=== PATIENT | male | born 1945 | race Caucasian/White ===

== ENCOUNTER 2021-05-16 00:16 | Emergency (ER) | payer MEDICARE, SELFPAY ==
[~2021-05-16] VITALS: Ht 188 cm; Wt 122.5 kg
--- NOTE | 2021-05-16 00:34 | NUR ---
Placed in room 2 . Placed on hall monitor, blood pressure machine and pulse oximeter. To gown for exam. Side rails up. Report given to TOOTIE HAYES.
[2021-05-16 00:35] VITALS: BP_SYST 162
--- NOTE | 2021-05-16 00:35 | NUR ---
Pt reported episode of non radiation pressure to L side of chest yesterday afternoon. States it lasted about 15 minutes before spontaneously resolving. Experienced another episode of non radiating chest pain earlier tonight while getting ready for bed. Denies any dizziness/lightheadedness, shortness of breath, nausea/vomiting or any other symptoms/discomforts.
[2021-05-16] MEDS ORDERED: ASPIRIN 81 MG TAB.CHEW PO ONE (00:45)
--- NOTE | 2021-05-16 00:45 | NUR ---
BETI SWAB COLLECTED AND SENT TO LAB.
--- NOTE | 2021-05-16 01:20 | NUR ---
CIERRA [place] at bedside examining patient.
[2021-05-16] MEDS ORDERED: NITROGLYCERIN 0.4 MG TAB.SUBL SL ONE ×3 (01:45→04:00)
[2021-05-16] MEDS ORDERED: MAGNESIUM SULFATE 50 ML IV ONE (01:45)
[2021-05-16 02:17] LABS: ALANINE AMINOTRANSFERASE 38 U/L (12-78); ALBUMIN 3.4 g/dL (3.4-4.8); ANION GAP 12 (5-15); ASPARTATE AMINOTRANSFERASE 14 U/L (10-37); CALCIUM 8.9 mg/dL (8.4-11.0); CHLORIDE 100 mmol/L (98-107); CREATININE 1.32 mg/dL (0.55-1.30); GLUCOSE 325 mg/dL (70-99); POTASSIUM 4.6 mmol/L (3.5-5.1); SODIUM SERUM 136 mmol/L (136-145); UREA NITROGEN, BLOOD 29 mg/dL (8-21)
[2021-05-16 02:28] LABS: BASOPHILS % (AUTO) 0.3 % (0.0-2.0); EOSINOPHILS # (AUTO) 0.2 K/uL (0.0-0.4); EOSINOPHILS % (AUTO) 2.5 % (0.0-4.0); HEMATOCRIT 40.6 % (36-54); HEMOGLOBIN 13.4 g/dL (14.0-18.0); LYMPHOCYTES # (AUTO) 3.1 K/uL (1.0-5.5); MEAN CORPUSCULAR HEMOGLOBIN 31 pg (27-31); MEAN CORPUSCULAR HGB CONC 33 % (32-36); MEAN CORPUSCULAR VOLUME 94 fL (79.0-98.0); MONOCYTES % (AUTO) 11.9 % (1.7-9.3); NEUTROPHILS % (AUTO) 48.3 % (40.0-70.0); PLATELET COUNT (AUTO) 162 K/uL (130-430); RED BLOOD CELL COUNT(AUTO) 4.31 MIL/uL (4.2-6.2); RED CELL DISTRIBUTION WIDTH 13.4 % (9.0-15.0); WHITE BLOOD COUNT (AUTO) 8.3 K/uL (4.8-10.8)
[2021-05-16 02:30] LABS: TOTAL BILIRUBIN 0.2 mg/dL (0.0-1.0)
--- NOTE | 2021-05-16 04:00 | NUR ---
Pt reported "minor" aggravation to Left side of chest. 1st dose of Nitroglycerin given Sublingualy. 0400: BP: 165/53 72 HR. 0405: BP 144/63 66 HR. Pt reports relief from 1st dose of Nitro. States "I dont have any discomfort at this time." Does not feel the need for another dose of Nitro at this time. Resting comfortably in bed.
--- NOTE | 2021-05-16 05:02 | NUR ---
Called [facility]; Gave report to FREDDY Salazar in ER. Pt made aware of transfer.
--- NOTE | 2021-05-16 06:52 | NUR ---
Patient does not wish to proceed with medical care recommended by ER MD Ortiz . Patient given information related to possible complications, up to and including , which could occur as a result of leaving hospital at this time. Patient verbalizes understanding of risks involved leaving against medical advice. Patient has signed AMA form.
[2021-05-16 06:55] VITALS: BP_SYST 139
== END 2021-05-16 06:54 | disposition left against medical advice (07) ==
LOC: SED 00:16
DX: R07.89 Other chest pain (principal); Z88.0 Allergy status to penicillin; Z20.822 Contact with and (suspected) exposure to COVID-19
CPT/HCPCS: 36415; 71045; 80053; 83880; 84484; 85025; 85379; 87426; 93005; 96365; 99285; J3475